=== PATIENT | female | born 2000 | race African-American/Black ===

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

== ENCOUNTER 2021-01-26 18:11 | Emergency (ER) | payer OTHER ==
[~2021-01-26] VITALS: Ht 152.4 cm; Wt 68.3 kg
[~2021-01-26 18:11] MED LIST changes: +FLAG500T PO; +FLUV25TA2 PO; +HYDR-643 PO; -PHEN-593 PO; +PHEN1TAB73 PO
[2021-01-26] MEDS ORDERED: NAPR-837 PO (20:25)
[2021-01-26 20:43] VITALS: BP 119/65
== END 2021-01-26 20:45 | disposition home or self-care (01) ==
LOC: M ED 18:11
DX: M76.31 Iliotibial band syndrome, right leg (principal); M76.32 Iliotibial band syndrome, left leg; M70.72 Other bursitis of hip, left hip; M70.71 Other bursitis of hip, right hip; F41.9 Anxiety disorder, unspecified; F33.9 Major depressive disorder, recurrent, unspecified; Z79.899 Other long term (current) drug therapy

== ENCOUNTER → 2021-03-01 | Outpatient (REF) | payer OTHER ==
[~2021-03-01] MED LIST changes: +NAPR-837 PO
== END ==
LOC: M WUC 19:35
PROVIDERS: ATTEND Physician Assistant
DX: B37.3 Candidiasis of vulva and vagina (principal)

== ENCOUNTER → 2021-06-06 | Outpatient (REF) ==
--- NOTE | 2021-06-07 00:32 | REP ---
INDICATION: ARTHRITIS COMPARISON: None. TECHNIQUE: AP and lateral right and left tibia/fibula FINDINGS: The osseous structures and joint spaces are symmetric intact and normal. There is no evidence for acute fracture or dislocation. Surrounding soft tissues are unremarkable. No subcutaneous emphysema or radiodense foreign body. IMPRESSION: Normal bilateral tibia/fibula radiographs. <Electronically signed by Isaias Chance > 06/07/21 0028
--- NOTE | 2021-06-07 00:42 | REP ---
INDICATION: ARTHRITIS COMPARISON: None. TECHNIQUE: AP, lateral, bilateral oblique views right and left foot. FINDINGS: The osseous structures and joint spaces are symmetric, intact and normal. There is no evidence for acute fracture or dislocation. Surrounding soft tissues are unremarkable. No subcutaneous emphysema or radiodense foreign body. IMPRESSION: Normal bilateral foot radiograph series. No overt arthritic changes. <Electronically signed by Isaias Chance > 06/07/21 0039
--- NOTE | 2021-06-07 00:44 | REP ---
INDICATION: ARTHRITIS COMPARISON: None. TECHNIQUE: AP, lateral, bilateral oblique views right hand left hand. FINDINGS: The osseous structures and joint spaces are symmetric, intact and normal. There is no evidence for acute fracture or dislocation. Surrounding soft tissues are unremarkable. No subcutaneous emphysema or radiodense foreign body. No significant osteoarthritic or inflammatory arthritic degenerative changes appreciated. IMPRESSION: Normal bilateral hand radiographs. No overt degenerative changes. <Electronically signed by Isaias Chance > 06/07/21 0040
== END ==
LOC: M PLAIMG 11:05
PROVIDERS: ATTEND Internal Medicine
DX: M79.671 Pain in right foot (principal); M79.672 Pain in left foot; M79.641 Pain in right hand; M79.642 Pain in left hand; M79.662 Pain in left lower leg; M79.661 Pain in right lower leg

== ENCOUNTER 2021-06-20 07:24 | Emergency (ER) | payer OTHER ==
[~2021-06-20] VITALS: Ht 152.4 cm; Wt 64.9 kg
[2021-06-20] MEDS ORDERED: MACR100C43 PO (09:39)
[2021-06-20] MEDS ORDERED: PYRI1TAB5 PO (09:39)
[2021-06-20 10:00] VITALS: BP 129/79
[2021-06-20 10:58] LABS: GC DNA AMPLIFICATION NEGATIVE (NEGATIVE)
== END 2021-06-20 10:03 | disposition home or self-care (01) ==
LOC: M ED 07:24
DX: N30.90 Cystitis, unspecified without hematuria (principal); Z87.42 Personal history of other diseases of the female genital tract; Z79.899 Other long term (current) drug therapy

== ENCOUNTER 2021-08-20 07:55 | Emergency (ER) | payer OTHER ==
[~2021-08-20] VITALS: Ht 152.4 cm; Wt 63.6 kg
[~2021-08-20 07:55] MED LIST changes: +MACR100C43 PO; +PYRI1TAB5 PO
[2021-08-20] MEDS ORDERED: LIDOCAINE 1% SDV 5ML VIAL DILUENT ONE (09:25)
[2021-08-20] MEDS ORDERED: cefTRIAXone SOD 250MG VIAL (J0696 PER 250MG) IM ONE (09:25)
[2021-08-20] MEDS ORDERED: PYRI1TAB5 PO (09:27)
[2021-08-20] MEDS ORDERED: CEPH500C PO (09:27)
[2021-08-20 09:45] VITALS: BP 115/62
== END 2021-08-20 09:49 | disposition home or self-care (01) ==
LOC: M ED 07:55
DX: N39.0 Urinary tract infection, site not specified (principal); M25.59 Pain in other specified joint; F32.9 Major depressive disorder, single episode, unspecified; F41.9 Anxiety disorder, unspecified
CPT/HCPCS: 80047; 81001; 84702; 87088; 96372; 99283; J0696